=== PATIENT | male | born 1970 | race African-American/Black ===

== ENCOUNTER 2024-08-11 14:21 | Emergency (ER) | payer OTHER ==
[~2024-08-11] VITALS: Ht 177.8 cm; Wt 118.0 kg
[2024-08-11 14:23] VITALS: O2SAT 97
[2024-08-11] MEDS: SODIUM CHLORIDE 0.9% 1,000 ML IV ONE ×2 (14:41→18:43)
[2024-08-11] MEDS: DILTIAZEM HCL 30MG TABLET PO NR (14:42)
[2024-08-11] MEDS ORDERED: DILTIAZEM HCL 60MG TABLET PO ONE (14:45)
[2024-08-11 15:15] LABS: BASOPHILS % 0.7 % (0.0-2.0); HEMATOCRIT. 38.8 % (42.0-52.0); HEMOGLOBIN. 12.7 g/dL (14.0-18.0); LYMPHOCYTES % 16.6 % (20.0-50.0); MEAN CORPUSCULAR HEMOGLOBIN 26.9 pg (28.0-32.0); MEAN CORPUSCULAR HGB CONC 32.8 g/dL (31.0-37.0); MEAN CORPUSCULAR VOLUME 82.1 fL (80.0-94.0); MEAN PLATELET VOLUME 8.7 fl (7.4-10.4); MONOCYTES % 7.2 % (2.0-8.0); NEUTROPHILS % 74.5 % (40.0-76.0); PLATELET 230 x1000/uL (130-400); RED BLOOD CELL COUNT 4.72 mill/uL (4.7-6.1); RED CELL DISTRIBUTION WIDTH 15.3 % (11.6-14.6); WHITE BLOOD COUNT 10.2 x1000/uL (4.5-11.0)
[2024-08-11 15:23] LABS: CHLORIDE 110 mEq/L (98-107); POTASSIUM 3.9 mEq/L (3.5-5.1); SODIUM 144 mEq/L (136-145)
[2024-08-11 15:24] LABS: CALCIUM 8.9 mg/dL (8.7-10.4); CARBON DIOXIDE 29 mEq/L (21-32)
[2024-08-11 15:27] LABS: PARTIAL THROMBOPLASTIN TIME 28.2 sec (23.4-31.0); PROTHROMBIN TIME 10.5 sec (9.6-11.0)
[2024-08-11 15:29] LABS: CREATININE 0.7 mg/dL (0.6-1.3); GLUCOSE 118 mg/dL (70-105); UREA NITROGEN BLOOD 15 mg/dL (9-23)
[2024-08-11 15:31] LABS: TROPONIN I HIGH SENSITIVITY 8 ng/L (3.0-53)
[2024-08-11 18:09] LABS: TROPONIN I HIGH SENSITIVITY 113 ng/L (3.0-53)
[2024-08-11] MEDS: ASPIRIN 81MG TABLET PO ONE (18:48)
[2024-08-11 19:26] LABS: TROPONIN I HIGH SENSITIVITY 167 ng/L (3.0-53)
[2024-08-11 19:45] VITALS: BP 151/94; PULSE 78; RESP 12; TEMP 36.7; O2SAT 98
== END 2024-08-11 20:07 | disposition home or self-care (01) ==
LOC: ER 14:21 → EDBEDREQ 14:45 → CANBEDREQ 19:39 → ER 20:07
DX: I47.10 Supraventricular tachycardia, unspecified (principal); I48.91 Unspecified atrial fibrillation; I21.4 Non-ST elevation (NSTEMI) myocardial infarction; I10 Essential (primary) hypertension
CPT/HCPCS: 99291; 96360; 96361; 80048; 83880; 85025; 85610; 85730; 84484; 71045; 93005; 36415; J7030

== ENCOUNTER 2024-10-17 21:16 | Emergency (ER) | payer OTHER ==
[~2024-10-17] VITALS: Ht 190.5 cm; Wt 117.3 kg
[2024-10-17 21:21] VITALS: O2SAT 99
[2024-10-17 21:24] VITALS: BP 123/83; PULSE 97; RESP 12; TEMP 37.1; O2SAT 99
[2024-10-17 21:57] LABS: EOSINOPHILS % 1.8 % (0.0-5.0); HEMOGLOBIN. 13.1 g/dL (14.0-18.0); LYMPHOCYTES % 27.9 % (20.0-50.0); MEAN CORPUSCULAR HEMOGLOBIN 26.1 pg (28.0-32.0); MEAN CORPUSCULAR HGB CONC 31.9 g/dL (31.0-37.0); MEAN CORPUSCULAR VOLUME 81.7 fL (80.0-94.0); MEAN PLATELET VOLUME 8.7 fl (7.4-10.4); MONOCYTES % 10.8 % (2.0-8.0); NEUTROPHILS % 58.5 % (40.0-76.0); PLATELET 257 x1000/uL (130-400); RED BLOOD CELL COUNT 5.02 mill/uL (4.7-6.1); RED CELL DISTRIBUTION WIDTH 14.9 % (11.6-14.6); WHITE BLOOD COUNT 8.9 x1000/uL (4.5-11.0)
[2024-10-17 22:04] LABS: CHLORIDE 107 mEq/L (98-107); POTASSIUM 3.6 mEq/L (3.5-5.1); SODIUM 147 mEq/L (136-145)
[2024-10-17 22:05] LABS: CARBON DIOXIDE 28 mEq/L (21-32)
[2024-10-17 22:06] LABS: CALCIUM 9.2 mg/dL (8.7-10.4)
[2024-10-17 22:11] LABS: CREATININE 0.9 mg/dL (0.6-1.3); GLUCOSE 107 mg/dL (70-105); UREA NITROGEN BLOOD 19 mg/dL (9-23)
[2024-10-17 22:13] LABS: TROPONIN I HIGH SENSITIVITY 7 ng/L (3.0-53)
[2024-10-17 22:54] LABS: T4 FREE 1.05 ng/dL (0.89-1.76); THYROID STIMULATING HORMONE 2.91 uIU/mL (0.55-4.78)
[2024-10-18 00:47] LABS: TROPONIN I HIGH SENSITIVITY 7 ng/L (3.0-53)
== END 2024-10-18 01:40 | disposition left against medical advice (07) ==
LOC: ER 21:16
DX: R42 Dizziness and giddiness (principal); R00.0 Tachycardia, unspecified; I48.91 Unspecified atrial fibrillation; I10 Essential (primary) hypertension
CPT/HCPCS: 36415; 71045; 80048; 83880; 84439; 84443; 84484; 85025; 99284; 99285